=== PATIENT | female | born 1980 | race Caucasian/White ===

== ENCOUNTER 2016-09-22 12:14 | Emergency (ER) | payer MEDICARE, OTHER ==
[~2016-09-22] VITALS: Ht 175.3 cm; Wt 146.1 kg
[~2016-09-22 12:14] MED LIST: ARIP15TA2 PO; BACL-19 PO; BACL20TA PO; BUPR100T6 PO; CLON0.5T PO; Coumadin; DESV100T PO; ELOQUIS PO; ERGO500017 PO; FENT1PAT76 TD; FERR325T20 PO; FLUO40CA9 PO; FURO-93 PO; GABA300C10 PO; HYDR-3144 PO; HYDR-3307 PO; HYDR50TA13 PO; LANS15TA5 PO; METF500T3 PO; METF500T4 PO; MONT10TA6 PO; OMEP-110 PO; OXYC10TA6 PO; OXYC5CAP4 PO; POLY17PO5 PO; POTA10TA57 PO; PREN-13 PO; SPIR50TA PO; SPIR50TA2 PO; TOPI100T94 PO; TOPI50TA35 PO; WARF10TA PO; WARF10TA6 PO; WARF6TAB PO
[2016-09-22 12:18] VITALS: BP 118/74
[2016-09-22] MEDS ORDERED: ENOX150S5 SQ (13:03)
[2016-09-22] MEDS ORDERED: LANS30CA PO (13:03)
[2016-09-22] MEDS ORDERED: CYAN100028 PO (13:03)
== END 2016-09-22 12:59 | disposition home or self-care (01) ==
LOC: ED 12:30
DX: O26.892 Other specified pregnancy related conditions, second trimester (principal); S30.1XXA Contusion of abdominal wall, initial encounter; X58.XXXA Exposure to other specified factors, initial encounter; Y93.9 Activity, unspecified; Y99.8 Other external cause status; Y92.89 Other specified places as the place of occurrence of the external cause
CPT/HCPCS: 99281

== ENCOUNTER 2016-10-22 20:06 | Observation (INO) | payer MEDICARE, OTHER ==
[~2016-10-22 20:06] MED LIST changes: +CYAN100028 PO; +ENOX150S5 SQ; +LANS30CA PO
[2016-10-22] MEDS ORDERED: D5%-LACTATED RINGERS 1,000 ML IV SCH (21:50)
== END 2016-10-22 23:30 | disposition home or self-care (01) ==
LOC: LDOP 20:06 → LDIP 22:00
PROVIDERS: ADMIT Student in an Organized Health Care Education/Training Program; ATTEND Student in an Organized Health Care Education/Training Program
DX: O26.899 Other specified pregnancy related conditions, unspecified trimester (principal); R10.9 Unspecified abdominal pain; O99.810 Abnormal glucose complicating pregnancy; Z3A.00 Weeks of gestation of pregnancy not specified
CPT/HCPCS: 36415; 59025; 76819; 81001; 82947; 82962; 87086; G0378; 96360

== ENCOUNTER 2016-11-18 08:25 | Inpatient (IN) | payer OTHER, MEDICARE ==
[~2016-11-18] VITALS: Ht 176.5 cm; Wt 145.4 kg
[2016-11-18 09:50] LABS: BLOOD UREA NITROGEN 7 mg/dL (7-18)
[2016-11-18 09:51] LABS: ASPARTATE AMINO TRANSFERASE 21 U/L (15-37)
[2016-11-18 09:59] VITALS: BP 114/51
[2016-11-18] MEDS ORDERED: ENOXAPARIN 150 MG/ML SQ SCH (10:30)
[2016-11-18] MEDS: CHOLECALCIFEROL 1,000 UNIT TABLET PO SCH (10:30)
[2016-11-18] MEDS ORDERED: ERGOCALCIFEROL 50,000 UNIT CAPSULE PO SCH (10:30)
[2016-11-18] MEDS: ENOXAPARIN 150 MG/ML SQ SCH (11:47)
[2016-11-18] MEDS: BUSPIRONE 5 MG TABLET PO SCH ×3 (11:48→21:12)
[2016-11-18] MEDS: OMEPRAZOLE 20 MG CAPSULE.DR PO SCH ×2 (11:50→11:56)
[2016-11-18] MEDS: CETIRIZINE 10 MG TABLET PO SCH (12:13)
[2016-11-18] MEDS: OMEPRAZOLE/SOD. BICARB. PACKET PO SCH (12:24)
[2016-11-18] MEDS ORDERED: BUSP5TAB2 PO (13:14)
[2016-11-18] MEDS ORDERED: OXYcodone/APAP 5/325MG TABLET ONE (13:46)
[2016-11-18] MEDS ORDERED: INSULIN REGULAR 100 UNITS/ML, 3ML VIAL SQ-INSULIN SCH (14:00)
[2016-11-18] MEDS ORDERED: OXYcodone/APAP 10/325MG TABLET ONE (14:13)
[2016-11-18] MEDS: HYDROcodone/APAP 10/325 MG TABLET PO PRN (14:20)
[2016-11-18] MEDS ORDERED: MONTELUKAST 10 MG TABLET PO SCH (21:00)
[2016-11-19] MEDS: ENOXAPARIN 150 MG/ML SQ SCH ×2 (00:19→11:50)
[2016-11-19] MEDS ORDERED: HYDROcodone/APAP 5/325 TABLET ONE ×2 (00:36→08:58)
[2016-11-19] MEDS: HYDROcodone/APAP 10/325 MG TABLET PO PRN ×2 (01:06→09:14)
[2016-11-19] MEDS: OMEPRAZOLE/SOD. BICARB. PACKET PO SCH (07:38)
[2016-11-19] MEDS: CHOLECALCIFEROL 1,000 UNIT TABLET PO SCH (09:14)
[2016-11-19] MEDS: CETIRIZINE 10 MG TABLET PO SCH (09:14)
[2016-11-19] MEDS: BUSPIRONE 5 MG TABLET PO SCH (09:14)
== END 2016-11-19 18:05 | disposition home or self-care (01) | DRG 781 ==
LOC: LDIP 08:25 → 2NE 08:31
PROVIDERS: ADMIT Student in an Organized Health Care Education/Training Program; ATTEND Student in an Organized Health Care Education/Training Program
DX: O24.913 Unspecified diabetes mellitus in pregnancy, third trimester (principal); Z68.42 Body mass index [BMI] 45.0-49.9, adult; K90.9 Intestinal malabsorption, unspecified; O99.213 Obesity complicating pregnancy, third trimester; O99.283 Endocrine, nutritional and metabolic diseases complicating pregnancy, third trimester; E66.01 Morbid (severe) obesity due to excess calories; O99.843 Bariatric surgery status complicating pregnancy, third trimester; E16.1 Other hypoglycemia; O99.613 Diseases of the digestive system complicating pregnancy, third trimester; K91.1 Postgastric surgery syndromes; E28.2 Polycystic ovarian syndrome; F32.9 Major depressive disorder, single episode, unspecified; O99.343 Other mental disorders complicating pregnancy, third trimester; O99.513 Diseases of the respiratory system complicating pregnancy, third trimester; J45.909 Unspecified asthma, uncomplicated; O26.893 Other specified pregnancy related conditions, third trimester; Z67.11 Type A blood, Rh negative; N80.9 Endometriosis, unspecified; O09.513 Supervision of elderly primigravida, third trimester; Z79.01 Long term (current) use of anticoagulants; Z88.8 Allergy status to other drugs, medicaments and biological substances; Z88.6 Allergy status to analgesic agent; Z91.040 Latex allergy status; Z3A.35 35 weeks gestation of pregnancy; Z86.718 Personal history of other venous thrombosis and embolism; Z86.711 Personal history of pulmonary embolism; Z95.828 Presence of other vascular implants and grafts
CPT/HCPCS: 36415; 80053; 82962; 83036; 85025; 86850; 86900; 87081; J1650

== ENCOUNTER 2016-12-02 00:17 | Outpatient (CLI) | payer OTHER, MEDICARE ==
[~2016-12-02] VITALS: Ht 176.5 cm; Wt 150.0 kg
[~2016-12-02 00:17] MED LIST changes: +BUSP5TAB2 PO
[2016-12-02 00:45] VITALS: BP 116/61
== END 2016-12-02 01:50 | disposition home or self-care (01) ==
LOC: LDOP 00:17
PROVIDERS: ATTEND Student in an Organized Health Care Education/Training Program
DX: O09.523 Supervision of elderly multigravida, third trimester (principal); O99.513 Diseases of the respiratory system complicating pregnancy, third trimester; O99.343 Other mental disorders complicating pregnancy, third trimester; O42.92 Full-term premature rupture of membranes, unspecified as to length of time between rupture and onset of labor; O24.410 Gestational diabetes mellitus in pregnancy, diet controlled; O26.893 Other specified pregnancy related conditions, third trimester; R10.9 Unspecified abdominal pain; M54.9 Dorsalgia, unspecified; J45.909 Unspecified asthma, uncomplicated; F32.9 Major depressive disorder, single episode, unspecified; Z3A.37 37 weeks gestation of pregnancy
CPT/HCPCS: 59025; 81003; 87086; 89060; 99211; G0463; Q0114

== ENCOUNTER 2016-12-03 08:13 | Inpatient (IN) | payer OTHER, MEDICARE ==
[~2016-12-03] VITALS: Ht 177.8 cm; Wt 149.5 kg
[2016-12-03 09:30] VITALS: BP 115/56
[2016-12-03] MEDS ORDERED: OXYTOCIN 30U/ 0.9% NaCL 500ML 500 ML IV ONE (09:34)
[2016-12-03] MEDS ORDERED: SODIUM CITRATE/CITRIC ACID 30 ML UDC PO PRN (10:00)
[2016-12-03] MEDS ORDERED: ONDANSETRON 2MG/ML, 2ML IVPush PRN (10:00)
[2016-12-03] MEDS ORDERED: CALCIUM CARBONATE 500 MG TAB.CHEW PO PRN (10:00)
[2016-12-03] MEDS ORDERED: HEPARIN 5,000 UNITS/ML, 1ML IV ONE (10:00)
[2016-12-03] MEDS ORDERED: ALUMINUM/MAG/SIMETHICONE 30 ML UDC PO PRN (10:00)
[2016-12-03] MEDS ORDERED: FENTANYL PF 100 MCG/2ML IV PRN (10:00)
[2016-12-03] MEDS ORDERED: METOCLOPRAMIDE 5 MG/ML, 2ML IVPush PRN (10:00)
[2016-12-03] MEDS: LACTATED RINGERS 1,000 ML IV SCH (11:00)
[2016-12-03 11:12] LABS: HEMOGLOBIN 10.9 g/dL (11.7-16.4)
[2016-12-03 11:18] LABS: WHITE BLOOD COUNT 11.7 x10^3/uL (3.4-10)
[2016-12-03] MEDS: HEPARIN 25,000 UNITS/500ML PMX 500 ML IV PRN (11:21)
[2016-12-03 11:51] VITALS: BP 109/56
[2016-12-03] MEDS ORDERED: NEWBORN KIT ONE (13:15)
[2016-12-03] MEDS ORDERED: ACETAMINOPHEN 325 MG TABLET ONE ×2 (14:19→21:21)
[2016-12-03] MEDS: ACETAMINOPHEN 325 MG TABLET PO PRN ×2 (14:21→21:26)
[2016-12-03] MEDS: HEPARIN 5,000 UNITS/ML, 1ML IV PRN (17:54)
[2016-12-03] MEDS ORDERED: DIPHENHYDRAMINE 25 MG CAPSULE ONE (21:22)
[2016-12-03] MEDS ORDERED: DIPHENHYDRAMINE 25 MG CAPSULE PO ONE (21:30)
[2016-12-04] MEDS: HEPARIN 5,000 UNITS/ML, 1ML IV PRN ×4 (01:41→20:37)
[2016-12-04] MEDS ORDERED: ACETAMINOPHEN 325 MG TABLET ONE ×3 (05:05→20:52)
[2016-12-04] MEDS: ACETAMINOPHEN 325 MG TABLET PO PRN ×3 (05:08→20:53)
[2016-12-04] MEDS: HEPARIN 25,000 UNITS/500ML PMX 500 ML IV PRN ×2 (05:12→17:38)
[2016-12-04] MEDS: PRENATAL VIT/IRON/FA 1 EACH TABLET PO SCH (10:45)
[2016-12-04] MEDS: BUSPIRONE 5 MG TABLET PO SCH ×3 (10:45→20:37)
[2016-12-04] MEDS: LACTATED RINGERS 1,000 ML IV SCH ×2 (14:34→17:34)
[2016-12-04] MEDS ORDERED: DIPHENHYDRAMINE 25 MG CAPSULE ONE (21:25)
[2016-12-04] MEDS ORDERED: DIPHENHYDRAMINE 12.5MG/5ML, 10ML UDC PO PRN (21:30)
[2016-12-05] MEDS: LACTATED RINGERS 1,000 ML IV SCH ×5 (00:59→19:41)
[2016-12-05] MEDS: HEPARIN 5,000 UNITS/ML, 1ML IV PRN ×3 (02:03→21:06)
[2016-12-05] MEDS: HEPARIN 25,000 UNITS/500ML PMX 500 ML IV PRN ×4 (05:56→21:06)
[2016-12-05] MEDS ORDERED: ACETAMINOPHEN 325 MG TABLET ONE (06:35)
[2016-12-05] MEDS: ACETAMINOPHEN 325 MG TABLET PO PRN (06:39)
[2016-12-05] MEDS ORDERED: MISOPROSTOL 25 MCG TABLET ONE ×2 (07:28→11:48)
[2016-12-05] MEDS: PRENATAL VIT/IRON/FA 1 EACH TABLET PO SCH (10:30)
[2016-12-05] MEDS: BUSPIRONE 5 MG TABLET PO SCH ×3 (10:31→21:05)
[2016-12-05 20:00] VITALS: BP 120/56
[2016-12-05] MEDS ORDERED: FENTANYL PF 100 MCG/2ML ONE (20:45)
[2016-12-05] MEDS ORDERED: DIPHENHYDRAMINE 25 MG CAPSULE PO ONE (21:00)
[2016-12-05] MEDS: CLOTRIMAZOLE CRM 1%, 15GM TP SCH (21:06)
[2016-12-05] MEDS: FENTANYL PF 100 MCG/2ML IVPush PRN (21:20)
[2016-12-06] MEDS ORDERED: FENTANYL PF 100 MCG/2ML ONE ×3 (00:38→19:10)
[2016-12-06] MEDS: FENTANYL PF 100 MCG/2ML IVPush PRN (00:41)
[2016-12-06] MEDS: LACTATED RINGERS 1,000 ML IV SCH ×4 (01:34→19:33)
[2016-12-06] MEDS: HEPARIN 25,000 UNITS/500ML PMX 500 ML IV PRN (04:12)
[2016-12-06] MEDS ORDERED: ACETAMINOPHEN 325 MG TABLET ONE (06:11)
[2016-12-06] MEDS: ACETAMINOPHEN 325 MG TABLET PO PRN (06:13)
[2016-12-06 07:30] VITALS: BP 108/51
[2016-12-06] MEDS: CLOTRIMAZOLE CRM 1%, 15GM TP SCH (09:00)
[2016-12-06] MEDS: BUSPIRONE 5 MG TABLET PO SCH ×2 (09:00→21:00)
[2016-12-06] MEDS ORDERED: OXYTOCIN 30U/ 0.9% NaCL 500ML 500 ML IV SCH (12:41)
[2016-12-06] MEDS ORDERED: LACTATED RINGERS 1,000 ML IV SCH ×2 (12:41→13:00)
[2016-12-06] MEDS ORDERED: LACTATED RINGERS 1,000 ML IVBOLUS ONE (13:00)
[2016-12-06] MEDS ORDERED: SODIUM CITRATE/CITRIC ACID 30 ML UDC PO ONE (13:00)
[2016-12-06] MEDS ORDERED: METOCLOPRAMIDE 5 MG/ML, 2ML IV ONE (13:00)
[2016-12-06] MEDS ORDERED: D5%-LACTATED RINGERS 1,000 ML IV SCH ×2 (14:30)
[2016-12-06] MEDS ORDERED: OXYTOCIN 30U/ 0.9% NaCL 500ML 500 ML ONE (16:02)
[2016-12-06] MEDS ORDERED: SODIUM CITRATE/CITRIC ACID 30 ML UDC ONE (16:03)
[2016-12-06] MEDS ORDERED: METOCLOPRAMIDE 5 MG/ML, 2ML ONE (16:03)
[2016-12-06 16:19] LABS: HEMOGLOBIN 11.1 g/dL (11.7-16.4); WHITE BLOOD COUNT 10.5 x10^3/uL (3.4-10)
[2016-12-06] MEDS ORDERED: OXYcodone/APAP 5/325MG TABLET PO PRN ×2 (17:00)
[2016-12-06] MEDS ORDERED: ONDANSETRON 2MG/ML, 2ML IV PRN (17:00)
[2016-12-06] MEDS ORDERED: ACETAMINOPHEN 325 MG TABLET PO PRN (17:00)
[2016-12-06] MEDS ORDERED: METOCLOPRAMIDE 5 MG/ML, 2ML IV PRN (17:00)
[2016-12-06] MEDS ORDERED: CALCIUM CARBONATE 500 MG TAB.CHEW PO PRN (17:00)
[2016-12-06] MEDS ORDERED: MIDAZOLAM 1 MG/ML, 2ML ONE (17:54)
[2016-12-06] MEDS ORDERED: morphine SULFATE 10 MG/ML, 1ML ONE (18:22)
[2016-12-06] MEDS ORDERED: OXYcodone 5 MG/5 ML ORAL.SOL UDC ONE (19:09)
[2016-12-06] MEDS ORDERED: FENTANYL PF 100 MCG/2ML IV PRN (19:30)
[2016-12-06] MEDS ORDERED: OXYcodone 5 MG/5 ML ORAL.SOL UDC PO PRN (19:30)
[2016-12-06] MEDS: OXYTOCIN 30U/ 0.9% NaCL 500ML 500 ML IV SCH (19:37)
[2016-12-06 21:20] VITALS: BP 112/72
[2016-12-07] MEDS: OXYcodone 5 MG/5 ML ORAL.SOL UDC PO PRN ×3 (00:01→11:02)
[2016-12-07] MEDS: BUSPIRONE 5 MG TABLET PO SCH ×5 (00:02→20:59)
[2016-12-07] MEDS: CLOTRIMAZOLE CRM 1%, 15GM TP SCH ×3 (00:03→20:59)
[2016-12-07 00:15] VITALS: BP 104/56
[2016-12-07] MEDS: LACTATED RINGERS 1,000 ML IV SCH ×6 (02:58→22:58)
[2016-12-07] MEDS: OXYTOCIN 30U/ 0.9% NaCL 500ML 500 ML IV SCH ×3 (02:58→22:58)
[2016-12-07] MEDS: ACETAMINOPHEN 325 MG TABLET PO PRN (04:10)
[2016-12-07 04:30] VITALS: BP 113/56
[2016-12-07 06:22] LABS: HEMATOCRIT 29.3 % (34.6-47.8); HEMOGLOBIN 9.6 g/dL (11.7-16.4); WHITE BLOOD COUNT 15.5 x10^3/uL (3.4-10)
[2016-12-07 06:45] VITALS: BP 97/62
[2016-12-07] MEDS: PRENATAL VIT/IRON/FA 1 EACH TABLET PO SCH (08:41)
[2016-12-07] MEDS: MEPERIDINE/PF 100 MG/ML IM PRN ×3 (08:41→16:49)
[2016-12-07] MEDS: DOCUSATE 100 MG CAPSULE PO PRN ×2 (08:41→19:24)
[2016-12-07] MEDS: SERTRALINE 50MG TABLET PO SCH (08:42)
[2016-12-07 11:45] VITALS: BP 107/71
[2016-12-07] MEDS: HYDROmorphone 2MG TABLET PO PRN ×3 (15:01→22:52)
[2016-12-07 15:45] VITALS: BP 113/67
[2016-12-07] MEDS ORDERED: RHOGAM FROM BLOOD BANK 1 NOTE EA IM/IV ONE (16:00)
[2016-12-07] MEDS: APIXABAN 5 MG TABLET PO SCH (16:32)
[2016-12-07 19:20] VITALS: BP 118/70
[2016-12-07] MEDS: FERROUS SULFATE 325 MG TABLET PO SCH (20:58)
[2016-12-08] MEDS: LACTATED RINGERS 1,000 ML IV SCH ×5 (00:58→18:58)
[2016-12-08] MEDS: HYDROmorphone 2MG TABLET PO PRN ×5 (02:53→20:38)
[2016-12-08] MEDS: APIXABAN 5 MG TABLET PO SCH ×2 (02:53→15:03)
[2016-12-08] MEDS ORDERED: HYDROmorphone 2MG TABLET ONE (07:34)
[2016-12-08 07:40] VITALS: BP 102/64
[2016-12-08] MEDS: PRENATAL VIT/IRON/FA 1 EACH TABLET PO SCH (07:45)
[2016-12-08] MEDS: DOCUSATE 100 MG CAPSULE PO PRN ×2 (07:45→21:04)
[2016-12-08] MEDS: SIMETHICONE 80 MG CHEW TAB PO PRN ×2 (07:48→15:03)
[2016-12-08] MEDS: OXYTOCIN 30U/ 0.9% NaCL 500ML 500 ML IV SCH ×2 (08:58→20:00)
[2016-12-08] MEDS: FERROUS SULFATE 325 MG TABLET PO SCH ×2 (09:10→21:02)
[2016-12-08] MEDS: BUSPIRONE 5 MG TABLET PO SCH ×3 (09:11→21:04)
[2016-12-08] MEDS: CLOTRIMAZOLE CRM 1%, 15GM TP SCH ×2 (09:11→21:05)
[2016-12-08] MEDS ORDERED: DIPH,PERTUSS(ACELL),TET VAC/PF NC IM-VACC ONE ×2 (09:16→09:30)
[2016-12-08] MEDS: SERTRALINE 50MG TABLET PO SCH (09:22)
[2016-12-08] MEDS: MEPERIDINE/PF 100 MG/ML IM PRN ×2 (09:56→23:09)
[2016-12-08] MEDS ORDERED: METOCLOPRAMIDE 5 MG/ML, 2ML IV PRN (20:00)
[2016-12-08] MEDS ORDERED: ACETAMINOPHEN 325 MG TABLET PO PRN (20:00)
[2016-12-08] MEDS ORDERED: ONDANSETRON 2MG/ML, 2ML IV PRN (20:00)
[2016-12-08] MEDS ORDERED: CALCIUM CARBONATE 500 MG TAB.CHEW PO PRN (20:00)
[2016-12-08 20:10] VITALS: BP 100/69
[2016-12-09] MEDS: HYDROmorphone 2MG TABLET PO PRN ×6 (00:46→20:30)
[2016-12-09] MEDS: LACTATED RINGERS 1,000 ML IV SCH ×2 (00:58→04:58)
[2016-12-09] MEDS: APIXABAN 5 MG TABLET PO SCH ×3 (02:49→20:58)
[2016-12-09] MEDS: OXYTOCIN 30U/ 0.9% NaCL 500ML 500 ML IV SCH (06:00)
[2016-12-09 07:14] VITALS: BP 98/62
[2016-12-09] MEDS ORDERED: PANTOPRAZOLE GRAN. PKT 40 MG PO SCH (07:30)
[2016-12-09] MEDS: PANTOPRAZOLE GRAN. PKT 40 MG PO SCH (07:53)
[2016-12-09] MEDS: DOCUSATE 100 MG CAPSULE PO PRN ×2 (09:02→20:30)
[2016-12-09] MEDS: FERROUS SULFATE 325 MG TABLET PO SCH ×2 (09:02→20:58)
[2016-12-09] MEDS: PRENATAL VIT/IRON/FA 1 EACH TABLET PO SCH (09:02)
[2016-12-09] MEDS: CLOTRIMAZOLE CRM 1%, 15GM TP SCH ×2 (09:03→20:58)
[2016-12-09] MEDS: SERTRALINE 50MG TABLET PO SCH (09:03)
[2016-12-09] MEDS: BUSPIRONE 5 MG TABLET PO SCH ×3 (09:03→20:58)
[2016-12-09 20:35] VITALS: BP 105/59
[2016-12-10] MEDS: HYDROmorphone 2MG TABLET PO PRN ×4 (00:49→13:18)
[2016-12-10 08:00] VITALS: BP 115/71
[2016-12-10] MEDS: APIXABAN 5 MG TABLET PO SCH (09:14)
[2016-12-10] MEDS: PRENATAL VIT/IRON/FA 1 EACH TABLET PO SCH (09:14)
[2016-12-10] MEDS: SERTRALINE 50MG TABLET PO SCH (09:14)
[2016-12-10] MEDS: FERROUS SULFATE 325 MG TABLET PO SCH (09:14)
[2016-12-10] MEDS: DOCUSATE 100 MG CAPSULE PO PRN (09:14)
[2016-12-10] MEDS: BUSPIRONE 5 MG TABLET PO SCH (09:15)
[2016-12-10] MEDS: PANTOPRAZOLE GRAN. PKT 40 MG PO SCH (09:15)
[2016-12-10] MEDS: CLOTRIMAZOLE CRM 1%, 15GM TP SCH (09:18)
[2016-12-10] MEDS ORDERED: HYDR4TAB48 PO (11:09)
[2016-12-10] MEDS ORDERED: DOCU-30 PO (11:09)
[2016-12-10] MEDS ORDERED: POLY17PO5 PO (11:10)
[2016-12-10] MEDS ORDERED: SERT50TA PO (11:12)
[2016-12-10] MEDS ORDERED: APIX5TAB PO (11:13)
== END 2016-12-10 13:50 | disposition home or self-care (01) | DRG 765 ==
LOC: LDIP 08:13 → 2NW 12-06 20:52
PROVIDERS: ADMIT Student in an Organized Health Care Education/Training Program; ATTEND Student in an Organized Health Care Education/Training Program
PROC: 10D00Z1 Extraction of Products of Conception, Low, Open Approach (ICD-10-PCS; 2016-12-06)
PROC: 0UB70ZZ Excision of Bilateral Fallopian Tubes, Open Approach (ICD-10-PCS; 2016-12-06)
PROC: 30233S1 Transfusion of Nonautologous Globulin into Peripheral Vein, Percutaneous Approach (ICD-10-PCS; principal; 2016-12-07)
DX: O99.52 Diseases of the respiratory system complicating childbirth (principal); O98.82 Other maternal infectious and parasitic diseases complicating childbirth; Z68.42 Body mass index [BMI] 45.0-49.9, adult; Z86.711 Personal history of pulmonary embolism; Z86.718 Personal history of other venous thrombosis and embolism; O99.344 Other mental disorders complicating childbirth; F32.9 Major depressive disorder, single episode, unspecified; Z3A.37 37 weeks gestation of pregnancy; Z37.0 Single live birth; Z87.440 Personal history of urinary (tract) infections; Z98.84 Bariatric surgery status; O99.02 Anemia complicating childbirth; D64.9 Anemia, unspecified; J45.909 Unspecified asthma, uncomplicated; O99.214 Obesity complicating childbirth; E66.01 Morbid (severe) obesity due to excess calories; Z88.6 Allergy status to analgesic agent; Z91.040 Latex allergy status; F41.9 Anxiety disorder, unspecified; B35.4 Tinea corporis; O75.89 Other specified complications of labor and delivery; K21.9 Gastro-esophageal reflux disease without esophagitis; E16.2 Hypoglycemia, unspecified; O09.519 Supervision of elderly primigravida, unspecified trimester
CPT/HCPCS: 36415; 82803; 82962; 85025; 85461; 85520; 85610; 85730; 86850; 86900; 86923; 88302; 90715; J1644; J2250; J2790; J3010; J2175; J2270; J2590; J2765; J7120; J7121; Q0163

== ENCOUNTER 2017-02-06 10:04 | Emergency (ER) | payer MEDICARE, OTHER ==
[~2017-02-06] VITALS: Ht 175.3 cm; Wt 147.8 kg
[~2017-02-06 10:04] MED LIST changes: +APIX5TAB PO; -ARIP15TA2 PO; +ARIP15TA3 PO; +DOCU-131 PO; +FERR325T18 PO; -FERR325T20 PO; -HYDR-3144 PO; +HYDR-3245 PO; +HYDR4TAB48 PO; -LANS15TA5 PO; +LANS15TA6 PO; +OXYC5CAP2 PO; -OXYC5CAP4 PO; +SERT50TA PO; +TOPI100T8 PO; -TOPI100T94 PO
[2017-02-06] MEDS ORDERED: IRON (10:36)
[2017-02-06] MEDS ORDERED: SERT100T PO (10:36)
[2017-02-06] MEDS ORDERED: LANS30CA PO (10:36)
[2017-02-06] MEDS ORDERED: PRENATAL (10:36)
[2017-02-06] MEDS ORDERED: SODIUM CHLORIDE 0.9% 1,000ML IVBOLUS ONE (11:00)
[2017-02-06] MEDS ORDERED: SODIUM CHLORIDE FLUSH 10ML SYR IVF ONE (11:00)
[2017-02-06 11:33] LABS: HEMATOCRIT 35.5 % (34.6-47.8); HEMOGLOBIN 11.4 g/dL (11.7-16.4); WHITE BLOOD COUNT 8.8 x10^3/uL (3.4-10)
[2017-02-06 11:37] LABS: PATH.CAST-FLAG NOT PRESENT; SPERM-FLAG NOT PRESENT; SRC-FLAG NOT PRESENT; XTAL-FLAG NOT PRESENT; YLC-FLAG NOT PRESENT
[2017-02-06 11:43] LABS: BLOOD UREA NITROGEN 15 mg/dL (7-18)
[2017-02-06 12:45] VITALS: BP 110/60
== END 2017-02-06 12:47 | disposition home or self-care (01) ==
LOC: ED 10:44
DX: N92.0 Excessive and frequent menstruation with regular cycle (principal); N93.8 Other specified abnormal uterine and vaginal bleeding; Z79.01 Long term (current) use of anticoagulants; K21.9 Gastro-esophageal reflux disease without esophagitis; Z86.718 Personal history of other venous thrombosis and embolism; Z87.891 Personal history of nicotine dependence
CPT/HCPCS: 36415; 76830; 80048; 81001; 82040; 84702; 85025; 85610; 85730; 96360; 99285; J7030

== ENCOUNTER → 2018-03-04 | Outpatient (CLI) | payer MEDICARE, OTHER ==
[~2018-03-04] MED LIST changes: +ALBU6.7H INH; +FENTANYL PF 100 MCG/2ML ONE; +FLUMAZENIL 0.1 MG/1 ML, 5ML ONE; +FLUO20CA19 PO; +GABA600T2 PO; +IRON; +METF500T17 PO; -METF500T4 PO; +MIDAZOLAM 1 MG/ML, 5ML ONE; +NALOXONE 1 MG/ML, 2ML ONE; +OXYC-306 PO; +POTASSIUM PO; +PRENATAL; +QUET25TA5 PO; +QUET300T5 PO; +SERT100T PO; -SPIR50TA2 PO; +SPIR50TA4 PO; +TRAZ150T62 PO; +WARF10TA43 PO; -WARF10TA6 PO
== END | disposition home or self-care (01) ==
LOC: RAD 11:50
PROVIDERS: ATTEND Family Medicine
DX: M47.812 Spondylosis without myelopathy or radiculopathy, cervical region (principal); F40.240 Claustrophobia; F41.9 Anxiety disorder, unspecified
CPT/HCPCS: 72141; 99156; 99157; J2250; J3010; J2310

== ENCOUNTER 2018-03-06 06:44 | Day surgery (SDC) | payer MEDICARE, OTHER ==
[~2018-03-06] VITALS: Ht 175.3 cm; Wt 154.6 kg
[~2018-03-06 06:44] MED LIST changes: -ALBU6.7H INH; -FENTANYL PF 100 MCG/2ML ONE; -FLUMAZENIL 0.1 MG/1 ML, 5ML ONE; -FLUO20CA19 PO; -GABA600T2 PO; -MIDAZOLAM 1 MG/ML, 5ML ONE; -NALOXONE 1 MG/ML, 2ML ONE; -OXYC-306 PO; -POTASSIUM PO; -QUET25TA5 PO; -QUET300T5 PO; -TRAZ150T62 PO
[2018-03-06 07:52] VITALS: BP 111/76
[2018-03-06] MEDS ORDERED: LACTATED RINGERS 1,000 ML IV SCH (07:56)
[2018-03-06] MEDS ORDERED: POTASSIUM PO (08:05)
[2018-03-06] MEDS ORDERED: BACL-19 PO (08:05)
[2018-03-06] MEDS ORDERED: FURO-93 PO (08:05)
[2018-03-06] MEDS ORDERED: TRAZ150T62 PO (08:05)
[2018-03-06] MEDS ORDERED: OXYC-306 PO (08:05)
[2018-03-06] MEDS ORDERED: QUET300T5 PO (08:06)
[2018-03-06] MEDS ORDERED: GABA600T2 PO (08:06)
[2018-03-06] MEDS ORDERED: QUET25TA5 PO (08:06)
[2018-03-06] MEDS ORDERED: ALBU6.7H INH (08:06)
[2018-03-06] MEDS ORDERED: FLUO20CA19 PO (08:06)
[2018-03-06] MEDS ORDERED: GLYCOPYRROLATE 0.2MG/1ML, 5ML ONE (09:55)
[2018-03-06] MEDS ORDERED: PROPOFOL 10 MG/ML, 20ML ONE (09:55)
[2018-03-06] MEDS ORDERED: ONDANSETRON 2MG/ML, 2ML ONE (09:55)
[2018-03-06] MEDS ORDERED: DEXAMETHASONE 4 MG/ML, 1ML ONE (09:55)
[2018-03-06] MEDS ORDERED: FENTANYL PF 100 MCG/2ML ONE (09:57)
[2018-03-06] MEDS ORDERED: GADOBUTROL 15 MMOL/15 ML VIAL ONE (10:28)
[2018-03-06] MEDS ORDERED: ONDANSETRON ODT 8 MG PO PRN (12:00)
[2018-03-06] MEDS ORDERED: MIDAZOLAM 1 MG/ML, 2ML IV PRN (12:00)
[2018-03-06] MEDS ORDERED: EPHEDRINE 50 MG/ML, 1ML IVPush PRN (12:00)
[2018-03-06] MEDS ORDERED: EPHEDRINE 50 MG/ML, 1ML IM PRN (12:00)
[2018-03-06] MEDS ORDERED: DIPHENHYDRAMINE 50 MG/ML, 1ML IVPush PRN (12:00)
[2018-03-06] MEDS ORDERED: LABETALOL 5MG/ML, 20ML IV PRN (12:00)
[2018-03-06] MEDS ORDERED: OXYcodone 5 MG/5 ML ORAL.SOL UDC PO PRN (12:00)
[2018-03-06] MEDS ORDERED: PROMETHAZINE 12.5 MG SUPP PR PRN (12:00)
[2018-03-06] MEDS ORDERED: MORPHINE SULFATE 4 MG/ML, 1ML IVPush PRN (12:00)
[2018-03-06] MEDS ORDERED: FENTANYL PF 100 MCG/2ML IV PRN (12:00)
[2018-03-06] MEDS ORDERED: PROMETHAZINE 25 MG SUPP PR PRN (12:00)
[2018-03-06] MEDS ORDERED: PROMETHAZINE 25 MG/ML, 1ML IV PRN (12:00)
[2018-03-06] MEDS ORDERED: MEPERIDINE/PF 25MG/0.5ML IVPush PRN (12:00)
== END 2018-03-06 13:25 | disposition home or self-care (01) ==
LOC: OUT 06:44 → EDSTATUS 09:00 → OUT 13:25
PROVIDERS: ATTEND Family Medicine
DX: M50.323 Other cervical disc degeneration at C6-C7 level (principal); M48.02 Spinal stenosis, cervical region; I10 Essential (primary) hypertension; E11.9 Type 2 diabetes mellitus without complications; J45.909 Unspecified asthma, uncomplicated; F31.9 Bipolar disorder, unspecified; E66.01 Morbid (severe) obesity due to excess calories; Z68.43 Body mass index [BMI] 50.0-59.9, adult; Z86.718 Personal history of other venous thrombosis and embolism; Z91.040 Latex allergy status; Z88.6 Allergy status to analgesic agent; Z88.8 Allergy status to other drugs, medicaments and biological substances; Z79.899 Other long term (current) drug therapy; F17.210 Nicotine dependence, cigarettes, uncomplicated; Z98.890 Other specified postprocedural states; Z98.84 Bariatric surgery status; Z79.84 Long term (current) use of oral hypoglycemic drugs
CPT/HCPCS: 70549; 72141; A9585; J1100; J2405; J2704; J3010; J3490; J7120

== ENCOUNTER 2020-02-04 14:03 | Emergency (ER) | payer OTHER, MEDICAID ==
[~2020-02-04] VITALS: Ht 177.8 cm; Wt 100.0 kg
[~2020-02-04 14:03] MED LIST changes: +ALBU6.7H8 INH; +FLUO20CA19 PO; +GABA600T7 PO; +HYDR-3246 PO; -HYDR-3307 PO; -HYDR50TA13 PO; +HYDR50TA99 PO; +OXYC-306 PO; +POTASSIUM PO; +QUET25TA5 PO; +QUET300T5 PO; +TRAZ150T62 PO
--- NOTE | 2020-02-04 14:34 | NUR ---
BEDSIDE REPORT TO GURINDER CARRILLO
--- NOTE | 2020-02-04 15:29 | NUR ---
PT WAS ABLE TO VOID AFTER DRINKING APPROX 500ML OF H20. BLADDER SCAN SHOWED <10ML
[2020-02-04 15:31] LABS: BASOPHILS # (AUTO) 0.09 x10^3/uL (0-0.1); BASOPHILS % (AUTO) 1 % (0-1); EOSINOPHILS # (AUTO) 0.39 x10^3/uL (0-0.4); EOSINOPHILS % (AUTO) 5 % (1-7); LYMPHOCYTES # (AUTO) 1.73 x10^3/uL (1-3.4); LYMPHOCYTES % (AUTO) 22 % (22-44); MD NO; MEAN CORPUSCULAR HEMOGLOBIN 29.4 pg (27.0-34.8); MEAN CORPUSCULAR HGB CONC 32.7 g/dL (32.4-35.8); MONOCYTES # (AUTO) 0.41 x10^3/uL (0.2-0.8); MONOCYTES % (AUTO) 5 % (2-9); NEUTROPHILS # (AUTO) 5.12 x10^3/uL (1.8-6.8); NEUTROPHILS % (AUTO) 66 % (42-75); PLATELET COUNT 250 x10^3/uL (130-400); RED BLOOD COUNT 4.37 x10^6/uL (3.82-5.3); RED CELL DISTRIBUTION WIDTH 13.6 % (9.6-15.2)
[2020-02-04 15:34] LABS: ALANINE AMINOTRANSFERASE 27 U/L (12-78); ANION GAP 2 mmol/L (5-15); CHLORIDE 111 mmol/L (98-107); CREATININE 0.82 mg/dL (0.55-1.02); SALICYLATE LEVEL 3.8 mg/dL (2.8-20.0)
[2020-02-04 15:39] LABS: ALKALINE PHOSPHATASE 60 U/L (45-117); BILIRUBIN,TOTAL 0.3 mg/dL (0.2-1.0); TOTAL PROTEIN 6.7 g/dL (6.4-8.2)
[2020-02-04] MEDS ORDERED: DEXTROSE 50%, 50ML SYRINGE ONE (16:06)
--- NOTE | 2020-02-04 16:14 | NUR ---
NOTIFIED OF PT'S BG OF 44. PT A04 BUT DROWSY. PT GIVEN APPLE JUICE. D50 GIVEN SHORTLY AFTER. [facility] BACK TO [facility].
[2020-02-04] MEDS ORDERED: DEXTROSE 50%, 50ML SYRINGE IVPush ONE (16:30)
[2020-02-04 17:14] VITALS: BP 135/75
--- NOTE | 2020-02-04 18:06 | NUR ---
PT EATING FOOD PROVIDED. PT REFUSES TO GIVE UA AND REFUSES SC. PT STATES SHE WANTS TO LEAVE. AO4
== END 2020-02-04 18:42 | disposition home or self-care (01) ==
LOC: ED 15:59
DX: E16.2 Hypoglycemia, unspecified (principal); R41.82 Altered mental status, unspecified; K21.9 Gastro-esophageal reflux disease without esophagitis; Z86.718 Personal history of other venous thrombosis and embolism
CPT/HCPCS: 36415; 80053; 80307; 82140; 82962; 84703; 85025; 93005; 99284